=== PATIENT | female | born 1990 | race Caucasian/White ===

== ENCOUNTER 2021-08-29 04:58 | Inpatient (IN) ==
[2021-08-29] MEDS ORDERED: Famotidine 20 MG/2 ML VIAL IVP ONE (05:32)
[2021-08-29] MEDS ORDERED: Metoclopramide 10 MG/2 ML VIAL IVP ONE (05:32)
[2021-08-29] MEDS ORDERED: Oxytocin 20 units/ LR 1000 mL 20 UNIT/1,000 ML BAG IVC ONE (05:32)
[2021-08-29] MEDS ORDERED: Ringers Solution, Lactated 1,000 ML IVC ONE (05:32)
[2021-08-29] MEDS ORDERED: CeFAZolin Syr 3,000MG/30 ML 3,000 MG/30 ML SYRINGE IVPB ONE (05:32)
[2021-08-29] MEDS ORDERED: Azithromycin 500 MG in 0.9 % Sodium Chloride 250 ML IVPB PRN (05:32)
[2021-08-29] MEDS ORDERED: Ringers Solution, Lactated 1,000 ML ONE ×2 (05:43→06:51)
[2021-08-29 06:19] LABS: Bacteria,Urine Few per hpf (None-Few); Bilirubin,Urine Negative (Negative); Blood,Urine Negative (Negative); Clarity,Urine Turbid (Clear); Color,Urine Yellow (Yellow); Glucose,Urine (UA) Normal (Normal); Ketones,Urine Negative (Negative); Leukocyte Esterase,Urine Large (Negative); Mucus,Urine Few per lpf (None-Few); Nitrite,Urine Negative (Negative); Protein,Urine 30 mg/dL (Neg-Trace); Specific Gravity,Urine 1.026 (1.010-1.025); Squamous Epithelial Cell,Urine Moderate per hpf (None-Few); Urobilinogen,Urine Normal (Normal); WBC,Urine 15-30 per hpf (0-3)
[2021-08-29 06:23] LABS: Basophils # 0.1 K/mcL (0.0-0.2); Basophils % 0.6 %; Eosinophils # 0.1 K/mcL (0.0-0.6); Eosinophils % 0.5 %; Hematocrit 34.2 % (35.3-44.9); Lymphocytes # 2.7 K/mcL (0.6-4.6); Lymphocytes % 22.9 %; Mean Corpuscular HGB Conc 32.2 g/dL (31.6-35.5); Mean Corpuscular Hemoglobin 29.9 pg (28.0-33.3); Mean Corpuscular Volume 92.9 fL (83.0-100.0); Mean Platelet Volume 10.2 fL (9.4-12.4); Monocytes # 0.9 K/mcL (0.0-1.3); Monocytes % 7.5 %; Platelet Count 293 K/mcL (140-400); Red Blood Count 3.68 M/mcL (3.82-4.97); Red Cell Distribution Width 16.3 % (11.5-14.5); Segmented Neutrophils % 67.5 %; White Blood Count 11.8 K/mcL (4.3-11.1)
[2021-08-29 06:39] LABS: Influenza A PCR Negative (Negative); Influenza B PCR Negative (Negative); Resp. Syncytial Virus PCR Negative (Negative)
[2021-08-29 06:40] LABS: SARS-CoV-2 by PCR (In House) Negative (Negative)
[2021-08-29] MEDS ORDERED: Ondansetron 4 MG/2 ML VIAL ONE (06:50)
[2021-08-29] MEDS ORDERED: Ketorolac 30 MG/ML VIAL ONE (06:51)
[2021-08-29] MEDS ORDERED: *HR* Morphine Sulfate/PF 10 MG/10 ML AMPUL ONE (07:19)
[2021-08-29] MEDS ORDERED: *HR* FentaNYL (PF) 100 MCG/2 ML VIAL ONE (07:19)
[2021-08-29] MEDS ORDERED: CeFAZolin 2,000 MG/120 ML BAG IVPB ONE (07:22)
[2021-08-29] MEDS ORDERED: Acetaminophen IV 1,000 MG/100 ML BAG IVPB ONE (08:10)
[2021-08-29] MEDS ORDERED: 0.9 % Sodium Chloride 1,000 ML IVC SCH (11:24)
[2021-08-29] MEDS ORDERED: Simethicone 80 MG TAB.CHEW PO PRN (11:24)
[2021-08-29] MEDS ORDERED: Metoclopramide 10 MG/2 ML VIAL IVP PRN (11:24)
[2021-08-29] MEDS ORDERED: *HR* OxyCODONE Immed Rel 5 MG TABLET PO PRN ×2 (11:24)
[2021-08-29] MEDS ORDERED: Ondansetron 4 MG/2 ML VIAL IVP PRN (11:24)
[2021-08-29] MEDS ORDERED: Oxytocin 20 units/ LR 1000 mL 20 UNIT/1,000 ML BAG IVC SCH (11:24)
[2021-08-29 11:25] LABS: Amphetamine Screen,Urine Negative ng/mL (Cutoff=1000); Barbiturate Screen,Urine Negative ng/mL (Cutoff=200); Benzodiazepines Screen,Urine Negative ng/mL (Cutoff=200); Cannabinoid Screen,Urine Negative ng/mL (Cutoff = 50); Cocaine Screen,Urine Negative ng/mL (Cutoff= 300); Opiate Screen,Urine Negative ng/mL (Cutoff=300); Phencyclidine Screen,Urine Negative ng/mL (Cutoff=25)
[2021-08-29] MEDS: Prenatal Vit/FA 1 EACH TABLET PO SCH (15:24)
[2021-08-29] MEDS: Ibuprofen 600 MG TABLET PO SCH ×3 (15:24→23:15)
[2021-08-29] MEDS: Acetaminophen 325 MG TABLET PO SCH ×3 (15:24→23:15)
[2021-08-30] MEDS: Ibuprofen 600 MG TABLET PO SCH ×2 (06:20→11:29)
[2021-08-30] MEDS: Acetaminophen 325 MG TABLET PO SCH ×2 (06:21→11:29)
[2021-08-30 06:36] VITALS: BP 113/65; PULSE 89; TEMP 98; O2SAT 98
[2021-08-30 07:54] LABS: Basophils # 0.1 K/mcL (0.0-0.2); Basophils % 0.5 %; Eosinophils # 0.1 K/mcL (0.0-0.6); Eosinophils % 0.8 %; Hematocrit 30.4 % (35.3-44.9); Hemoglobin 9.6 g/dL (11.5-15.4); Immature Granulocytes % 0.5 % (0-4); Lymphocytes # 2.6 K/mcL (0.6-4.6); Lymphocytes % 23.3 %; Mean Corpuscular HGB Conc 31.6 g/dL (31.6-35.5); Mean Corpuscular Hemoglobin 29.2 pg (28.0-33.3); Mean Corpuscular Volume 92.4 fL (83.0-100.0); Mean Platelet Volume 10.3 fL (9.4-12.4); Monocytes # 0.7 K/mcL (0.0-1.3); Neutrophils # 7.6 K/mcL (1.6-8.9); Platelet Count 232 K/mcL (140-400); Red Blood Count 3.29 M/mcL (3.82-4.97); Red Cell Distribution Width 16.7 % (11.5-14.5); Segmented Neutrophils % 68.9 %; White Blood Count 11.1 K/mcL (4.3-11.1)
[2021-08-30] MEDS: Prenatal Vit/FA 1 EACH TABLET PO SCH (08:38)
== END 2021-08-30 12:30 | disposition home or self-care (01) | DRG 539 ==
LOC: 1NENULAB 04:58 → EDSTATUS 07:30 → 1NENUOBS 11:06
PROVIDERS: ADMIT Obstetrics & Gynecology; ATTEND Obstetrics & Gynecology